=== PATIENT | male | born 1985 | race Caucasian/White ===

== ENCOUNTER 2020-09-22 16:30 | Emergency (ER) | payer OTHER, SELFPAY ==
[2020-09-22 16:54] VITALS: BP 109/71; PULSE 84; RESP 18; TEMP 36.4; O2SAT 96; BMI 27.2
--- NOTE | 2020-09-22 17:27 | ECG_ITS ---
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 Measurements Intervals [place] Rate: 80 P: 67 [place]: 170 QRS: 21 QRSD: 86 T: 45 QT: 339 QTc: 393 Interpretive Statements SINUS RHYTHM POSSIBLE RIGHT VENTRICULAR CONDUCTION DELAY [RSR (QR) IN V1/V2] NONSPECIFIC T-WAVE ABNORMALITY INTERPRETATION BASED ON A DEFAULT AGE OF 40 YEARS Compared to ECG 08/15/2018 09:02:32 Sinus arrhythmia no longer present T-wave abnormality still present Electronically Signed On 09-22-2020 22:02:20 CDT by Chantal Pierce M.D. [id number] f
--- NOTE | 2020-09-22 17:27 | XRR_ITS ---
PROCEDURE INFORMATION: Exam: XR Chest Exam date and time: 09/22/2020 5:32 PM Age: 35 years old Clinical indication: Pain; Angina pectoris; Additional info: Chest pain TECHNIQUE: Imaging protocol: XR of the chest. Views: 1 view. COMPARISON: CR Chest 1 [place] [id number] 08/15/2018 9:28 AM FINDINGS: Lungs: Unremarkable. No consolidation. Pleural spaces: Unremarkable. No pleural effusion. No pneumothorax. Heart/Mediastinum: Unremarkable. No cardiomegaly. Bones/joints: Unremarkable. XR/XR chest 1V portable [id number] IMPRESSION: No acute findings.
--- NOTE | 2020-09-22 17:30 | ED_ITS ---
Documented by User: Jesse Jessica DO 09/24/20 06:39 HPI - Chest Pain General: Chief Complaint: Chest Pain Stated Complaint: chest pain, dizziness, hands slightly numb Time Seen by Provider: 09/22/20 17:22 History of Present Illness: HPI narrative: 45-year-old male comes in complaining of chest pain. He states radiates into his neck and his shoulder he took one of his grandfathers nitro and had some relief earlier today. He has had this chest pain intermittently for 2 to 4 weeks now. He was seen yesterday at his PCP had a normal EKG went to work today said his chest pain got worse while he was at work was a new anything particularly exertional at the time got a heavy sensation with radiation to the neck jaw and shoulder its resolved pretty much completely now. He does state the chest pain worse with deep inspiration. Has not taken any PPIs or H2 blockers with it. MD complaint: chest heaviness Onset (ago): week(s) (2-4) Timing of current episode: episodic Onset: during rest Pain location: substernal Pain radiation: neck, jaw/teeth and left shoulder Quality: aching and heaviness Relieving factors: nothing Exacerbating factors: nothing Associated symptoms: Reports dyspnea; Deny abdominal pain, diaphoresis, fever(s), leg edema, nausea, palpitations, sense of impending doom, syncope or vomiting Treatment prior to arrival: none and nitroglycerin (Earlier today.) Review of Systems Const: Denies: fever(s) or diaphoresis ENMT: Denies: throat pain, ear or mastoid pain, nasal discharge or nasal conge stion Card: Denies: palpitations or syncope Resp: Reports: dyspnea GI: Denies: abdominal pain, nausea or vomiting : Denies: flank pain, dysuria, urinary frequency or urinary urgency Skin/Breast: Denies: rash or pruritus PFS ED PFSH: Social History Smoking and tobacco status: former smoker Alcohol intake: never Lives independently: Yes Household members: spouse and children Physical Exam Const: COMMON NORMALS: no acute distress GENERAL APPEARANCE: cooperative and comfortable ORIENTATION/CONSCIOUSNESS: Yes awake, Yes oriented to person, Yes oriented to place and Yes oriented to time HENMT: COMMON NORMALS: normocephalic, atraumatic, hearing grossly normal bilaterally and external ears normal HEAD & SCALP: normocephalic and atraumatic EXTERNAL EAR: Yes external ears normal Neck/C-Spine: COMMON NORMALS: no JVD Resp: COMMON NORMALS: normal respiratory effort, No retractions, No use of accessory muscles and clear to auscultation bilaterally AUSCULTATION: clear to auscultation bilaterally Cardio: COMMON NORMALS: no JVD, regular rate, regular rhythm and No murmurs present (Cardio) RATE: regular rate RHYTHM: regular rhythm GI: COMMON NORMALS: Soft to palpation and No hepatosplenomegaly present AUSCULTATION: Yes normoactive bowel sounds PALPATION: Yes Soft to palpation, No Tenderness to palpation present (GI), No Guarding due to palpation present (GI) and Yes No hepatosplenomegaly present Extremity: COMMON NORMALS: normal to inspection, capillary refill normal, no clubbing, cyanosis or edema, no calf tenderness and no pedal edema Neuro: SENSORIUM/ORIENTATION: Yes oriented to person, Yes oriented to place and Yes oriented to time Skin: COMMON NORMALS: no rashes or lesions noted GENERAL SKIN EXAM: no rashes or lesions noted Course Vital Signs: Vital signs: Vital Signs Temperature 97.5 F L 09/22/20 21:29 Pulse Rate 74 09/22/20 21:29 Respiratory Rate 15 09/22/20 21:29 Blood Pressure 121/67 09/22/20 21:29 Pulse Oximetry 97 09/22/20 21:29 MDM - Chest Pain MDM Narrative: Medical decision making narrative: Patient presents with complaint of chest pain. He has had intermittent for 2-week. Second troponin is pending care turned over to Dr. Garcia at change of shift see his notes for final diagnosis and disposition Lab Data: Labs: Lab Results 09/22/20 09/22/20 09/22/20 Range/Units 17:24 17:24 17:24 WBC 10.1 H (4.0-10.0) 10^3/ uL RBC 6.10 H (4.1-5.3) 10^6/u L Hgb 16.7 H (11.7-16.6) g/dL Hct 48.3 (42.0-52.0) % MCV 79.2 L (80-94) fL MCH 27.4 L (28.0-34.0) pg MCHC 34.6 (30.0-36.0) g/dL RDW 12.5 (12.1-15.1) % Plt Count 297 (130-400) 10^3/c mm MPV 9.9 (7.4-10.4) fL Neut % (Auto) 56.9 % Lymph % (Auto) 31.9 % [place] % (Auto) 8.2 % Eos % (Auto) 1.9 % Baso % (Auto) 0.8 % Neut # (Auto) 5.75 (1.8-7.7) 10^3/u L Lymph # (Auto) 3.2 (0.8-4.8) 10^3/u L [place] # (Auto) 0.8 (0.2-0.9) 10^3/u L Eos # (Auto) 0.2 (0.0-0.8) 10^3/u L Baso # (Auto) 0.1 (0.0-0.1) 10^3/u L Nucleated RBC % (a uto) 0 % Nucleated RBCs # 0.0 /100WBC Sodium 139 (136-145) mmol/L Potassium 4.3 (3.5-5.1) mmol/L Chloride 99 (98-107) mmol/L Carbon Dioxide 26 (22-29) mmol/L Anion Gap 18.3 (5-19) BUN 18 (6-20) mg/dL Creatinine 1.1 (0.7-1.2) mg/dL GFR Calculation 76.2 L (90-130) mL/min Glucose 81 (65-115) mg/dL Calculated Osmolal ity 289 (285-295) mOsm/k g Calcium 10.0 (8.5-10.5) mg/dL Total Bilirubin 0.4 (0.15-1.2) mg/dL AST 22 (0-40) U/L ALT 24 (0-41) U/L Alkaline Phosphata se 79 (40-130) IU/L Troponin T Baselin e 29 H (0-15) ng/L Troponin T 120 Min [place] (0-15) ng/L Delta Troponin T (0-10) ABS# Total Protein 7.1 (6.6-8.7) g/dL Albumin 4.8 (3.5-5.2) g/dL Globulin 2.3 (1.3-4.6) g/dL 09/22/20 Range/Units 19:47 WBC (4.0-10.0) 10^3/ uL RBC (4.1-5.3) 10^6/u L Hgb (11.7-16.6) g/dL Hct (42.0-52.0) % MCV (80-94) fL MCH (28.0-34.0) pg MCHC (30.0-36.0) g/dL RDW (12.1-15.1) % Plt Count (130-400) 10^3/c mm MPV (7.4-10.4) fL Neut % (Auto) % Lymph % (Auto) % [place] % (Auto) % Eos % (Auto) % Baso % (Auto) % Neut # (Auto) (1.8-7.7) 10^3/u L Lymph # (Auto) (0.8-4.8) 10^3/u L [place] # (Auto) (0.2-0.9) 10^3/u L Eos # (Auto) (0.0-0.8) 10^3/u L Baso # (Auto) (0.0-0.1) 10^3/u L Nucleated RBC % (a uto) % Nucleated RBCs # /100WBC Sodium (136-145) mmol/L Potassium (3.5-5.1) mmol/L Chloride (98-107) mmol/L Carbon Dioxide (22-29) mmol/L Anion Gap (5-19) BUN (6-20) mg/dL Creatinine (0.7-1.2) mg/dL GFR Calculation (90-130) mL/min Glucose (65-115) mg/dL Calculated Osmolal ity (285-295) mOsm/k g Calcium (8.5-10.5) mg/dL Total Bilirubin (0.15-1.2) mg/dL AST (0-40) U/L ALT (0-41) U/L Alkaline Phosphata se (40-130) IU/L Troponin T Baselin e (0-15) ng/L Troponin T 120 Min [place] 19.90 H (0-15) ng/L Delta Troponin T -9.10 L (0-10) ABS# Total Protein (6.6-8.7) g/dL Albumin (3.5-5.2) g/dL Globulin (1.3-4.6) g/dL Discharge Plan Discharge Patient Disposition: Home Clinical Impression: Chest pain Qualifiers: Chest pain type: unspecified Qualified Code(s): R07.9 - Chest pain, unspecified Condition: Stable Prescriptions: New aspirin 81 mg tablet,chewable 81 mg PO DAILY Qty: 30 RF: 0 Discharge Orders: Discharge ED (Routine); Ordered 09/22/20 Ordered By: Galo Garcia Referrals: Mayuri Burden FNP [Primary Care Provider] - 1-3 days Discharge Diet: Advance as tolerated Discharge Activity: Resume usual activity Patient Instructions: Chest Pain (ED) Coding Level of Care Code ED Database Security Expert for Chg Fwd Exam Comprehensive Documented by User: Galo Garcia MD 09/22/20 20:35 HPI - Chest Pain General: Chief Complaint: Chest Pain Stated Complaint: chest pain, dizziness, hands slightly numb Time Seen by Provider: 09/22/20 17:22 PFS ED PFSH: Social History Smoking and tobacco status: former smoker Alcohol intake: never Lives independently: Yes Household members: spouse and children Course Vital Signs: Vital signs: Vital Signs Temperature 97.5 F L 09/22/20 21:29 Pulse Rate 74 09/22/20 21:29 Respiratory Rate 15 09/22/20 21:29 Blood Pressure 121/67 09/22/20 21:29 Pulse Oximetry 97 09/22/20 21:29 MDM - Chest Pain MDM Narrative: Medical decision making narrative: Reagan presents with chest pain. I took patient over from Dr. Quiros and his 2-hour troponin is negative. X-ray and EKGs here are normal as well. He has no signs of pulmonary embolism. Patient is follow-up his PCP and get an outpatient stress test we will start him on a baby aspirin. He is return to ER if worsening. He understands agrees to plan. Lab Data: Labs: Lab Results 09/22/20 09/22/20 09/22/20 Range/Units 17:24 17:24 17:24 WBC 10.1 H (4.0-10.0) 10^3/ uL RBC 6.10 H (4.1-5.3) 10^6/u L Hgb 16.7 H (11.7-16.6) g/dL Hct 48.3 (42.0-52.0) % MCV 79.2 L (80-94) fL MCH 27.4 L (28.0-34.0) pg MCHC 34.6 (30.0-36.0) g/dL RDW 12.5 (12.1-15.1) % Plt Count 297 (130-400) 10^3/c mm MPV 9.9 (7.4-10.4) fL Neut % (Auto) 56.9 % Lymph % (Auto) 31.9 % [place] % (Auto) 8.2 % Eos % (Auto) 1.9 % Baso % (Auto) 0.8 % Neut # (Auto) 5.75 (1.8-7.7) 10^3/u L Lymph # (Auto) 3.2 (0.8-4.8) 10^3/u L [place] # (Auto) 0.8 (0.2-0.9) 10^3/u L Eos # (Auto) 0.2 (0.0-0.8) 10^3/u L Baso # (Auto) 0.1 (0.0-0.1) 10^3/u L Nucleated RBC % (a uto) 0 % Nucleated RBCs # 0.0 /100WBC Sodium 139 (136-145) mmol/L Potassium 4.3 (3.5-5.1) mmol/L Chloride 99 (98-107) mmol/L Carbon Dioxide 26 (22-29) mmol/L Anion Gap 18.3 (5-19) BUN 18 (6-20) mg/dL Creatinine 1.1 (0.7-1.2) mg/dL GFR Calculation 76.2 L (90-130) mL/min Glucose 81 (65-115) mg/dL Calculated Osmolal ity 289 (285-295) mOsm/k g Calcium 10.0 (8.5-10.5) mg/dL Total Bilirubin 0.4 (0.15-1.2) mg/dL AST 22 (0-40) U/L ALT 24 (0-41) U/L Alkaline Phosphata se 79 (40-130) IU/L Troponin T Baselin e 29 H (0-15) ng/L Troponin T 120 Min [place] (0-15) ng/L Delta Troponin T (0-10) ABS# Total Protein 7.1 (6.6-8.7) g/dL Albumin 4.8 (3.5-5.2) g/dL Globulin 2.3 (1.3-4.6) g/dL 09/22/20 Range/Units 19:47 WBC (4.0-10.0) 10^3/ uL RBC (4.1-5.3) 10^6/u L Hgb (11.7-16.6) g/dL Hct (42.0-52.0) % MCV (80-94) fL MCH (28.0-34.0) pg MCHC (30.0-36.0) g/dL RDW (12.1-15.1) % Plt Count (130-400) 10^3/c mm MPV (7.4-10.4) fL Neut % (Auto) % Lymph % (Auto) % [place] % (Auto) % Eos % (Auto) % Baso % (Auto) % Neut # (Auto) (1.8-7.7) 10^3/u L Lymph # (Auto) (0.8-4.8) 10^3/u L [place] # (Auto) (0.2-0.9) 10^3/u L Eos # (Auto) (0.0-0.8) 10^3/u L Baso # (Auto) (0.0-0.1) 10^3/u L Nucleated RBC % (a uto) % Nucleated RBCs # /100WBC Sodium (136-145) mmol/L Potassium (3.5-5.1) mmol/L Chloride (98-107) mmol/L Carbon Dioxide (22-29) mmol/L Anion Gap (5-19) BUN (6-20) mg/dL Creatinine (0.7-1.2) mg/dL GFR Calculation (90-130) mL/min Glucose (65-115) mg/dL Calculated Osmolal ity (285-295) mOsm/k g Calcium (8.5-10.5) mg/dL Total Bilirubin (0.15-1.2) mg/dL AST (0-40) U/L ALT (0-41) U/L Alkaline Phosphata se (40-130) IU/L Troponin T Baselin e (0-15) ng/L Troponin T 120 Min [place] 19.90 H (0-15) ng/L Delta Troponin T -9.10 L (0-10) ABS# Total Protein (6.6-8.7) g/dL Albumin (3.5-5.2) g/dL Globulin (1.3-4.6) g/dL Imaging Data^: CXR: Attestation: I personally reviewed and interpreted this imaging study as doug bernabe: Radiologist's impression: [address] [address] XRay Report Signed Patient: Reagan Myers Unit #: [id number] : 1985 Age/Sex: 35 / M ADM Date: 09/22/20 Loc: ER Room/Bed: Attending Dr: Ordering Provider/Ordering MD: Jesse Jessica DO Date of Service: 09/22/20 Procedure(s): XR chest 1V portable [id number] Accession Number(s): [id number] Report Number: [id number] PROCEDURE INFORMATION: Exam: XR Chest Exam date and time: 09/22/2020 5:32 PM Age: 35 years old Clinical indication: Pain; Angina pectoris; Additional info: Chest pain TECHNIQUE: Imaging protocol: XR of the chest. Views: 1 view. COMPARISON: CR Chest 1 [place] [id number] 08/15/2018 9:28 AM FINDINGS: Lungs: Unremarkable. No consolidation. Pleural spaces: Unremarkable. No pleural effusion. No pneumothorax. Heart/Mediastinum: Unremarkable. No cardiomegaly. Bones/joints: Unremarkable. XR/XR chest 1V portable [id number] IMPRESSION: No acute findings. EKG Data^: EKG 1: Attestation: I personally reviewed and interpreted this EKG as follows: EKG interpretation date: 09/22/20 EKG interpretation time: 20:02 Interpretation: nsr hr 71 with no s tor t wave abnormalities qrs 93 qtc 394 Discharge Plan Discharge Patient Disposition: Home Clinical Impression: Chest pain Qualifiers: Chest pain type: unspecified Qualified Code(s): R07.9 - Chest pain, unspecified Condition: Stable Prescriptions: New aspirin 81 mg tablet,chewable 81 mg PO DAILY Qty: 30 RF: 0 Discharge Orders: Discharge ED (Routine); Ordered 09/22/20 Ordered By: Galo Garcia Referrals: Mayuri Burden FNP [Primary Care Provider] - 1-3 days Discharge Diet: Advance as tolerated Discharge Activity: Resume usual activity Patient Instructions: Chest Pain (ED) Coding Level of Care Code ED Database Security Expert for Alfredo Fwd Exam Comprehensive
[2020-09-22 17:39] LABS: Basophils # 0.1 10^3/uL (0.0-0.1); Basophils % 0.8 %; Eosinophils # 0.2 10^3/uL (0.0-0.8); Eosinophils % 1.9 %; Hematocrit 48.3 % (42.0-52.0); Hemoglobin 16.7 g/dL (11.7-16.6); Lymphocytes # 3.2 10^3/uL (0.8-4.8); Lymphocytes % 31.9 %; Mean Corpuscular HGB Conc 34.6 g/dL (30.0-36.0); Mean Corpuscular Hemoglobin 27.4 pg (28.0-34.0); Mean Corpuscular Volume 79.2 fL (80-94); Mean Platelet Volume 9.9 fL (7.4-10.4); Monocytes # 0.8 10^3/uL (0.2-0.9); Monocytes % 8.2 %; Neutrophils # 5.75 10^3/uL (1.8-7.7); Neutrophils % 56.9 %; Nucleated Red Blood Cells % 0 %; Platelet Count 297 10^3/cmm (130-400); Red Cell Distribution Width 12.5 % (12.1-15.1); White Blood Count 10.1 10^3/uL (4.0-10.0)
[2020-09-22 18:18] LABS: Alanine Aminotransferase 24 U/L (0-41); Albumin Level 4.8 g/dL (3.5-5.2); Alkaline Phosphatase 79 IU/L (40-130); Anion Gap 18.3 (5-19); Aspartate Amino Transferase 22 U/L (0-40); Blood Urea Nitrogen 18 mg/dL (6-20); Carbon Dioxide 26 mmol/L (22-29); Chloride 99 mmol/L (98-107); Globulin 2.3 g/dL (1.3-4.6); Glomerular Filtration Rate 76.2 mL/min (90-130); Glucose 81 mg/dL (65-115); Osmolality Calculated 289 mOsm/kg (285-295); Potassium 4.3 mmol/L (3.5-5.1); Sodium 139 mmol/L (136-145); Total Bilirubin 0.4 mg/dL (0.15-1.2); Total Protein 7.1 g/dL (6.6-8.7)
[2020-09-22 18:42] VITALS: BP 115/71; PULSE 71; RESP 18; O2SAT 97
[2020-09-22 18:47] LABS: Troponin(5th) Baseline 29 ng/L (0-15)
--- NOTE | 2020-09-22 19:27 | ECG_ITS ---
[facility] Test Date: 2020-09-22 Pat Name: Reagan Myers Department: Room: Gender: Male Ag Service Manager: : 1985 Requested By: Jesse Groves Order Number: [id number] [place] MD: Chantal Pierce M.D. Measurements Intervals [place] Rate: 71 P: 63 [place]: 180 QRS: 33 QRSD: 93 T: 35 QT: 372 QTc: 405 Interpretive Statements SINUS RHYTHM POSSIBLE RIGHT VENTRICULAR CONDUCTION DELAY [RSR (QR) IN V1/V2] NONSPECIFIC T-WAVE ABNORMALITY Compared to ECG 09/22/2020 17:02:52 No significant changes Electronically Signed On 09-22-2020 22:06:21 CDT by Chantal Pierce M.D. [email or web address] community [email or web address] medical center – [email or web address]/store/OM/[id number]
[2020-09-22 21:29] VITALS: BP 121/67; PULSE 74; RESP 15; TEMP 36.4; O2SAT 97
== END 2020-09-22 21:30 | disposition home or self-care (01) ==
PROVIDERS: Family Medicine; Emergency Provider Emergency Medicine; PCP Nurse Practitioner Family
DX: R07.9 Chest pain, unspecified (principal); Z87.891 Personal history of nicotine dependence
CPT/HCPCS: 71045; 80053; 84484; 85025; 93005; 99283

== ENCOUNTER 2020-10-01 09:25 | Emergency (ER) | payer OTHER, SELFPAY ==
[2020-10-01 09:41] VITALS: BP 149/77; PULSE 81; RESP 16; TEMP 36.7; O2SAT 98; BMI 27.2
--- NOTE | 2020-10-01 09:42 | XR_ITS ---
WS: [id number] Exam: XR chest 1V portable [id number] Date/Time of Exam: 10/01/2020 9:54 AM Reason For Exam: chest pain Comparison 09/22/2020. The lungs are clear and fully expanded. Normal cardiomediastinal structures and regional bony element s. Scattered calcified granulomas. XR/XR chest 1V portable [id number] IMPRESSION: 1. No acute cardiopulmonary finding. No change.
--- NOTE | 2020-10-01 09:43 | ECG_ITS ---
[facility] Test Date: 2020-10-01 Pat Name: Reagan Myers Department: Room: Gender: Male Ranch Rider: : 1985 Requested By: Jesse Groves Order Number: [id number] [place] MD: Chantal Pierce M.D. Measurements Intervals [place] Rate: 70 P: 62 [place]: 170 QRS: 10 QRSD: 107 T: 35 QT: 379 QTc: 409 Interpretive Statements SINUS RHYTHM POSSIBLE RIGHT VENTRICULAR CONDUCTION DELAY [RSR (QR) IN V1/V2] NONSPECIFIC ST & T-WAVE ABNORMALITY Compared to ECG 09/22/2020 20:02:36 No significant changes Electronically Signed On 10-01-2020 22:25:56 CDT by Chantal Pierce M.D. [email or web address] general hospitalGrabhouseohio state harding hospital.2,10E+07/store/NU/[id number]/[id number] f
--- NOTE | 2020-10-01 10:04 | ED_ITS ---
HPI - Chest Pain General: Chief Complaint: Chest Pain Stated Complaint: CP X2 WEEKS Time Seen by Provider: 10/01/20 09:39 History of Present Illness: HPI narrative: 35-year-old male returns emergency room with complaint of chest pain has had for 2 weeks. He was seen 9 days ago his troponin delta was negative and he was set up for an outpatient stress test. He states he has a follow-up appointment with his nurse practitioner did review that note he states she said he had a hole in his chest and would need chest CT although there is nothing in note reflecting that at all. He is not had any kind of penetrating trauma at home. He does admit to having a large amount of heartburn symptoms. When he was last seen he was started on a PPI. He has been taking those. He still has heartburn symptoms. He is also started on a baby aspirin. Patient is not diabetic. He is a former smoker. Chest pain is mildly reproducible with palpation across the lower portion of the sternum. MD complaint: chest pain Onset (ago): week(s) (2) Timing of current episode: episodic Prior episodes: Yes Onset: during rest Pain location: left chest and epigastric Pain radiation: none Quality: sharp Relieving factors: nothing Exacerbating factors: nothing Associated symptoms: Deny abdominal pain, diaphoresis, dyspnea, fever(s), leg edema, nausea, palpitations, sense of impending doom, syncope or vomiting Treatment prior to arrival: aspirin Review of Systems Const: Denies: fever(s) or diaphoresis ENMT: Denies: throat pain, ear or mastoid pain, nasal discharge or nasal congestion Card: Denies: palpitations or syncope Resp: Denies: dyspnea GI: Denies: abdominal pain, nausea or vomiting : Denies: flank pain, dysuria, urinary frequency or urinary urgency Skin/Breast: Denies: rash or pruritus PFS ED PFSH: Social History Smoking and tobacco status: former smoker Alcohol intake: never Lives independently: Yes Household members: spouse and children Physical Exam Const: COMMON NORMALS: no acute distress GENERAL APPEARANCE: cooperative and comfortable ORIENTATION/CONSCIOUSNESS: Yes awake, Yes oriented to person, Yes oriented to place and Yes oriented to time HENMT: COMMON NORMALS: normocephalic, atraumatic, hearing grossly normal bilaterally and external ears normal HEAD & SCALP: normocephalic and atraumatic EXTERNAL EAR: Yes external ears normal Neck/C-Spine: COMMON NORMALS: no JVD Resp: COMMON NORMALS: normal respiratory effort, No retractions, No use of accessory muscles and clear to auscultation bilaterally AUSCULTATION: clear to auscultation bilaterally Cardio: COMMON NORMALS: no JVD, regular rate, regular rhythm and No murmurs present (Cardio) RATE: regular rate RHYTHM: regular rhythm GI: COMMON NORMALS: Soft to palpation and No hepatosplenomegaly present AUSCULTATION: Yes normoactive bowel sounds PALPATION: Yes Soft to palpation, No Tenderness to palpation present (GI), No Guarding due to palpation present (GI) and Yes No hepatosplenomegaly present Extremity: COMMON NORMALS: normal to inspection, capillary refill normal, no clubbing, cyanosis or edema, no calf tenderness and no pedal edema Neuro: SENSORIUM/ORIENTATION: Yes oriented to person, Yes oriented to place and Yes oriented to time Skin: COMMON NORMALS: no rashes or lesions noted GENERAL SKIN EXAM: no rashes or lesions noted Course Vital Signs: Vital signs: Vital Signs Temperature 98.1 F 10/01/20 09:41 Pulse Rate 65 10/01/20 13:31 Respiratory Rate 17 10/01/20 13:31 Blood Pressure 131/72 10/01/20 13:31 Pulse Oximetry 99 10/01/20 13:31 MDM - Chest Pain MDM Narrative: Medical decision making narrative: Enzymes negative discharge home and set up for an outpatient stress test return if has problems Lab Data: Labs: Lab Results 10/01/20 10/01/20 10/01/20 Range/Units 10:20 10:20 10:20 WBC 6.5 (4.0-10.0) 10^3/ uL RBC 5.65 H (4.1-5.3) 10^6/u L Hgb 15.4 (11.7-16.6) g/dL Hct 45.3 (42.0-52.0) % MCV 80.2 (80-94) fL MCH 27.3 L (28.0-34.0) pg MCHC 34.0 (30.0-36.0) g/dL RDW 12.3 (12.1-15.1) % Plt Count 263 (130-400) 10^3/c mm MPV 9.8 (7.4-10.4) fL Neut % (Auto) 55.0 % Lymph % (Auto) 34.8 % [place] % (Auto) 6.2 % Eos % (Auto) 2.6 % Baso % (Auto) 1.2 % Neut # (Auto) 3.58 (1.8-7.7) 10^3/u L Lymph # (Auto) 2.3 (0.8-4.8) 10^3/u L [place] # (Auto) 0.4 (0.2-0.9) 10^3/u L Eos # (Auto) 0.2 (0.0-0.8) 10^3/u L Baso # (Auto) 0.1 (0.0-0.1) 10^3/u L Nucleated RBC % (a uto) 0 % Nucleated RBCs # 0.0 /100WBC D-Dimer (0-0.59) ug/mIFE U Sodium 139 (136-145) mmol/L Potassium 3.5 (3.5-5.1) mmol/L Chloride 102 (98-107) mmol/L Carbon Dioxide 27 (22-29) mmol/L Anion Gap 13.5 (5-19) BUN 16 (6-20) mg/dL Creatinine 0.9 (0.7-1.2) mg/dL GFR Calculation 96.0 (90-130) mL/min Glucose 119 H (65-115) mg/dL Calculated Osmolal ity 290 (285-295) mOsm/k g Calcium 8.6 (8.5-10.5) mg/dL Total Bilirubin 0.5 (0.15-1.2) mg/dL AST 19 (0-40) U/L ALT 31 (0-41) U/L Alkaline Phosphata se 70 (40-130) IU/L Creatine Kinase 128 (39-308) U/L Troponin T Baselin e 6 (0-15) ng/L Troponin T 120 Min [place] (0-15) ng/L Delta Troponin T (0-10) ABS# Total Protein 6.7 (6.6-8.7) g/dL Albumin 4.4 (3.5-5.2) g/dL Globulin 2.3 (1.3-4.6) g/dL 10/01/20 10/01/20 Range/Units 10:20 12:21 WBC (4.0-10.0) 10^3/ uL RBC (4.1-5.3) 10^6/u L Hgb (11.7-16.6) g/dL Hct (42.0-52.0) % MCV (80-94) fL MCH (28.0-34.0) pg MCHC (30.0-36.0) g/dL RDW (12.1-15.1) % Plt Count (130-400) 10^3/c mm MPV (7.4-10.4) fL Neut % (Auto) % Lymph % (Auto) % [place] % (Auto) % Eos % (Auto) % Baso % (Auto) % Neut # (Auto) (1.8-7.7) 10^3/u L Lymph # (Auto) (0.8-4.8) 10^3/u L [place] # (Auto) (0.2-0.9) 10^3/u L Eos # (Auto) (0.0-0.8) 10^3/u L Baso # (Auto) (0.0-0.1) 10^3/u L Nucleated RBC % (a uto) % Nucleated RBCs # /100WBC D-Dimer <= 0.27 (0-0.59) ug/mIFE U Sodium (136-145) mmol/L Potassium (3.5-5.1) mmol/L Chloride (98-107) mmol/L Carbon Dioxide (22-29) mmol/L Anion Gap (5-19) BUN (6-20) mg/dL Creatinine (0.7-1.2) mg/dL GFR Calculation (90-130) mL/min Glucose (65-115) mg/dL Calculated Osmolal ity (285-295) mOsm/k g Calcium (8.5-10.5) mg/dL Total Bilirubin (0.15-1.2) mg/dL AST (0-40) U/L ALT (0-41) U/L Alkaline Phosphata se (40-130) IU/L Creatine Kinase (39-308) U/L Troponin T Baselin e (0-15) ng/L Troponin T 120 Min [place] 6.00 (0-15) ng/L Delta Troponin T 0 (0-10) ABS# Total Protein (6.6-8.7) g/dL Albumin (3.5-5.2) g/dL Globulin (1.3-4.6) g/dL Discharge Plan Discharge Patient Disposition: Home Clinical Impression: Atypical chest pain Condition: Stable Prescriptions: Discontinued ibuprofen 200 mg Capsule 400 mg PO Q4H PRN (Reason: Pain) RF: 0 No Action aspirin 81 mg tablet,chewable 162 mg PO Q4H PRN (Reason: Pain) RF: 0 Discharge Orders: Discharge ED (Routine); Ordered 10/01/20 Ordered By: Jesse Jessica Referrals: Mayuri Burden FNP [Primary Care Provider] - Discharge Diet: Usual diet Discharge Activity: Resume usual activity Patient Instructions: Opioid Safety Activity Restrictions/Additional Instructions: Complete stress test as previously recommended. Coding Level of Care Code ED Track Repair Worker for Alfredo Fwd Exam Comprehensive
[2020-10-01 10:11] VITALS: BP 148/71; PULSE 71; RESP 20; O2SAT 97
[2020-10-01 10:31] LABS: Basophils # 0.1 10^3/uL (0.0-0.1); Basophils % 1.2 %; Eosinophils # 0.2 10^3/uL (0.0-0.8); Eosinophils % 2.6 %; Hematocrit 45.3 % (42.0-52.0); Hemoglobin 15.4 g/dL (11.7-16.6); Lymphocytes # 2.3 10^3/uL (0.8-4.8); Lymphocytes % 34.8 %; Mean Corpuscular Hemoglobin 27.3 pg (28.0-34.0); Mean Corpuscular Volume 80.2 fL (80-94); Mean Platelet Volume 9.8 fL (7.4-10.4); Monocytes # 0.4 10^3/uL (0.2-0.9); Monocytes % 6.2 %; Neutrophils # 3.58 10^3/uL (1.8-7.7); Nucleated Red Blood Cells % 0 %; Platelet Count 263 10^3/cmm (130-400); Red Blood Count 5.65 10^6/uL (4.1-5.3); Red Cell Distribution Width 12.3 % (12.1-15.1); White Blood Count 6.5 10^3/uL (4.0-10.0)
[2020-10-01 10:46] LABS: D Dimer <= 0.27 ug/mIFEU (0-0.59)
[2020-10-01 11:05] LABS: Troponin(5th) Baseline 6 ng/L (0-15)
[2020-10-01 11:06] LABS: Alanine Aminotransferase 31 U/L (0-41); Albumin Level 4.4 g/dL (3.5-5.2); Alkaline Phosphatase 70 IU/L (40-130); Anion Gap 13.5 (5-19); Aspartate Amino Transferase 19 U/L (0-40); Blood Urea Nitrogen 16 mg/dL (6-20); Calcium 8.6 mg/dL (8.5-10.5); Carbon Dioxide 27 mmol/L (22-29); Chloride 102 mmol/L (98-107); Creatine Phosphokinase 128 U/L (39-308); Globulin 2.3 g/dL (1.3-4.6); Glucose 119 mg/dL (65-115); Osmolality Calculated 290 mOsm/kg (285-295); Potassium 3.5 mmol/L (3.5-5.1); Sodium 139 mmol/L (136-145); Total Bilirubin 0.5 mg/dL (0.15-1.2); Total Protein 6.7 g/dL (6.6-8.7)
[2020-10-01] MEDS: lidocaine 2% viscous 15 ML, aluminum-mag hydrox-simethicon 30 ML, sucralfate oral liq 1 GM PO (11:27)
[2020-10-01 11:28] VITALS: BP 120/73; PULSE 67; RESP 16; O2SAT 98
[2020-10-01 12:51] LABS: Troponin 5 2HR Delta 0 ABS# (0-10)
[2020-10-01 13:31] VITALS: BP 131/72; PULSE 65; RESP 17; O2SAT 99
== END 2020-10-01 13:32 | disposition home or self-care (01) ==
PROVIDERS: Emergency Provider Family Medicine; PCP Nurse Practitioner Family
DX: R07.89 Other chest pain (principal); Z79.82 Long term (current) use of aspirin; Z87.891 Personal history of nicotine dependence
CPT/HCPCS: 71045; 80053; 82550; 84484; 85025; 85378; 93005; 99283

== ENCOUNTER 2020-12-27 11:37 | Outpatient (CLI) | payer OTHER, SELFPAY ==
[2020-12-27 11:57] VITALS: BMI 29.8
--- NOTE | 2020-12-27 11:57 | ECG_ITS ---
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 Interpretive Statements NAME OF STUDY: TREADMILL STRESS TEST INDICATION: Chest Pain Baseline blood pressure of 151/94 mm Hg, heart rate 83 beats per minute and oxygen saturation of 98%. EKG showed normal sinus rhythm, normal axis with nonspecific T wave inversion. Poor anterior R wave progression. The patient exercised for 9 minutes 41 seconds on a standard Elise[employer] protocol. Patient attained a maximum heart rate of 172 beats per minute(92% of the maximum predicted heart rate) with a blood pressure at the peak exercise of 187/96 mm Hg. The EKG at the peak exercise revealed sinus tachycardia with isolated PVCs. No significant ST-T wave changes. Patient did not have any chest pain or any significant arrhythmis with the exercise. The study was terminated due to exertional fatigue and shortness of breath. During the recovery phase, there were no new changes. Blood pressure at the end of the recovery phase was 143/85 mm Hg with a heart rate of 101 beats per minute and oxygen saturation 97%. CONCLUSION: 1. Normal EKG response to treadmill exercise. 2. No exercise-induced chest pain or cardiac arrhythmia 3. Excellent exercise tolerance, attained a maximum of 13.5 METs. Maximum VO2 of 47.3 mL/kg/min. 4. Baseline normal blood pressure with normal response to exercise. 5. Gamez treadmill score of 9.5 suggestive of low risk. Electronically Signed On 12-29-2020 18:51:25 CDT by Chantal Pierce M.D. [id number]
[2020-12-27 12:30] VITALS: BP 143/85; PULSE 99
== END 2020-12-27 11:38 | disposition home or self-care (01) ==
LOC: CDL 11:40
PROVIDERS: PCP Nurse Practitioner Family; Visit Provider Nurse Practitioner Family
DX: R07.9 Chest pain, unspecified (principal)
CPT/HCPCS: 93017